=== PATIENT | male | born 1965 | race Caucasian/White ===

== ENCOUNTER 2018-12-12 06:19 | Day surgery (SDC) | payer OTHER ==
[~2018-12-12] VITALS: Ht 162.6 cm; Wt 59.0 kg
[2018-12-12 07:01] VITALS: BP 123/86
[2018-12-12 10:03] VITALS: BP 107/79
== END 2018-12-12 10:05 | disposition home or self-care (01) ==
LOC: GI 06:19 → OR 08:30 → GI 08:30
DX: R63.4 Abnormal weight loss (principal); E11.9 Type 2 diabetes mellitus without complications; Z79.84 Long term (current) use of oral hypoglycemic drugs; Z79.899 Other long term (current) drug therapy
CPT/HCPCS: 45378; J1200; J1610; J2250; J2310; J3010; J3490